=== PATIENT | male | born 1955 | race Caucasian/White ===

== ENCOUNTER 2017-11-14 13:41 | Emergency (ER) | payer OTHER, BC ==
[~2017-11-14] VITALS: Ht 167.6 cm; Wt 144.4 kg
[~2017-11-14 13:41] MED LIST: ASPIRIN325 MG PO; CLINDAMYCIN HC300 MG PO; DAILY VALUE1 EACH PO; EFFEXOR XR150 MG PO; EFFEXOR XR75 MG PO; LIPITOR20 MG PO; LYRICA100 MG PO; TRAMADOL HCL50 MG PO; ULTRAM50 MG PO; VITAMIN B CO1 TABLET PO; ZESTORETIC 20-1 EAC1 NG; ZESTORETIC 20-1 EAC1 PO
[2017-11-14 16:28] LABS: HEMATOCRIT 40.8 % (38.0-50.0); HEMOGLOBIN 14.3 G/DL (12.5-16.6); MCH 30.2 PG (29.0-34.0); MCV 86.3 FL (86-99); PLATELET COUNT 272 K/uL (156-360); RBC DIS.WIDTH-CV 13.2 % (11.8-14.6); RED BLOOD COUNT 4.73 M/uL (4.00-5.50); WHITE BLOOD COUNT 10.6 K/uL (4.1-10.2)
[2017-11-14 16:43] LABS: CHLORIDE 102 mEq/L (99-109); POTASSIUM 3.3 mEq/L (3.7-5.4); SODIUM 140 mEq/L (136-147)
[2017-11-14 16:44] LABS: GLUCOSE 75 mg/dL (70-99)
[2017-11-14 16:48] LABS: CREATININE 1.2 mg/dL (0.6-1.3); GFR ESTIMATE (CALCULATED) > 59 mL/min/ (58.99-99999)
[2017-11-14 16:49] LABS: UREA NITROGEN (BUN) 17 mg/dL (9-23)
[2017-11-14 19:59] VITALS: BP 139/80
[2017-11-15] MEDS ORDERED: VITAMIN D2000 UNI1 PO (20:48)
[2017-11-17] MEDS ORDERED: TRAMADOL HCL50 MG PO (22:33)
[2017-11-17] MEDS ORDERED: GABAPENTIN300 MG PO (22:41)
[2017-11-17] MEDS ORDERED: ERGOCALCIF50000 UNIT PO (22:41)
[2017-11-17] MEDS ORDERED: CABERGOLINE0.5 MG PO (22:42)
== END 2017-11-14 20:01 | disposition home or self-care (01) ==
LOC: EME 13:41
PROVIDERS: Nurse Practitioner Family
DX: L03.115 Cellulitis of right lower limb (principal); Z16.29 Resistance to other single specified antibiotic; Z86.14 Personal history of Methicillin resistant Staphylococcus aureus infection; F41.9 Anxiety disorder, unspecified; F32.9 Major depressive disorder, single episode, unspecified; I10 Essential (primary) hypertension; Z79.82 Long term (current) use of aspirin; Z88.8 Allergy status to other drugs, medicaments and biological substances
CPT/HCPCS: 80048; 83605; 85027; 87040; 99281; 99284; J3370